=== PATIENT | male | born 1945 | race Caucasian/White ===

== ENCOUNTER → 2017-11-28 | Outpatient (CLI) | payer OTHER | LOC: M SMT 08:17 | DX: J90 Pleural effusion, not elsewhere classified (principal) | CPT/HCPCS: 71046 ==

== ENCOUNTER 2018-08-10 12:04 | Inpatient (IN) | payer MEDICARE, OTHER ==
[~2018-08-10] VITALS: Ht 177.8 cm; Wt 86.7 kg
[2018-08-10] MEDS ORDERED: FURO40TA2 (12:16)
[2018-08-10] MEDS ORDERED: SERT25TA88 PO (12:16)
[2018-08-10] MEDS ORDERED: FURO80TA2 PO (12:16)
[2018-08-10] MEDS ORDERED: ISOS60TA2 PO (12:16)
[2018-08-10] MEDS ORDERED: POTA1TAB23 (12:16)
[2018-08-10] MEDS ORDERED: PRAV20TA2 PO (12:16)
[2018-08-10] MEDS ORDERED: FERR324T2 PO (12:16)
[2018-08-10 12:31] VITALS: BP 105/55
[2018-08-10 13:27] LABS: HEMATOCRIT 34.6 % (42.0-52.0); HEMOGLOBIN 11.5 g/dl (13.5-17.5); MEAN CORPUSCULAR HGB CONC 33.2 g/dl (32.0-36.5); MEAN CORPUSCULAR VOLUME 93.3 fl (80.0-96.0); PLATELET COUNT, AUTOMATED 141 10^3/uL (150-450); RED BLOOD COUNT 3.71 10^6/uL (4.30-6.10); WHITE BLOOD COUNT 9.7 10^3/uL (4.0-10.0)
[2018-08-10 13:52] LABS: CREATININE FOR GFR 2.45 MG/DL (0.70-1.30); GLOMERULAR FILTRATION RATE 27.6 (>42); MB/CK RELATIVE INDEX 3.02 (< OR =4); POTASSIUM SERUM 4.3 MEQ/L (3.5-5.1); TROPONIN I 0.11 NG/ML (< 0.10)
--- NOTE | 2018-08-10 14:01 | REP ---
PORTABLE CHEST X-RAY: Single view. HISTORY: Dyspnea. COMPARISON CHEST X-RAY: November 28, 2017. FINDINGS: EKG monitoring electrodes overlie the chest. There are median sternotomy wires. The heart is mildly enlarged unchanged. The aorta is tortuous and calcific. There are clips in the soft tissues of the neck on the left. There is slight blunting of the right lateral pleural angle but this is improved from the November 28, 2017 prior study. IMPRESSION: Mild cardiac enlargement prior sternotomy. Slight blunting of the right lateral pleural angle. Otherwise no acute disease. Electronically Signed by Prince Martínez MD 08/10/2018 02:28 P
[2018-08-10] MEDS ORDERED: TRAZO50TA PO (14:12)
[2018-08-10] MEDS ORDERED: ASPI1TAB PO (14:12)
[2018-08-10] MEDS ORDERED: NITR4TASL SL (14:12)
[2018-08-10] MEDS ORDERED: VITMTA PO (14:12)
--- NOTE | 2018-08-10 15:09 | HPEPDOC ---
[facility] Medical History & Physical Date of Admission Aug 10, 2018 Attending Physician: A History and Physical ATTENDING: Dr. Diop PCP: Dr [facility] Dr Menon CC: edema HPI: 73yoM with a past medical history significant for CAD/CABG/Cardiac stents and CHF who was seen at Dr Menon's office today related to decompensated CHF. The pt was referred to ED for further evaluation. The pt has no advanced directives onfile. He states he wishes to be [employer], wants too pursue Hospice. States LE edema and abdominal distention has been unchanged for several days. Denies orthopnea, PND, cough, CP. Feels generally weak. Reports YU but otherwise states breathing is comfortable. Denies any fevers, chills, GAMBINO, palpitations, N/V/D or changes in bowel or bladder habits. Upon presentation to the hospital the patient was found to have decompensated CHF, thus the hospitalist team was consulted. PMHx: CAD/IL CHF. No TTE available. HTN HLD DM depression Fe def anemia CKD 3-4 PSHX: CABG Cardiac stents SOCHX: Resides in: [facility] Marital Status: Tobacco use: denies ETOH: denies Advanced directives: None FAMHX: Siblings: 1 sister Alive, well. 1 brother heart disease Children: none ROS: As noted in HPI, otherwise 11pt ROS of systems reviewed and remarkable for small open skin area coccyx. PE: GEN: 73yoM, appears stated age. Thin, cachectic appearing. No acute distress lying on the stretcher flat. Alert and oriented x 3. HEENT: Normocephalic, atraumatic. Pupils are equal, round, and reactive to light. Extraocular movements are intact. No nystagmus appreciated. Sclera are nonicteric. Conjunctiva without injection. No facial asymmetry. Moist mucous membranes. CHEST: Regular rate and rhythm, +S1, +S2 LUNGS: Good a/e bilaterally. No wheezes, rales, or rhonchi. Breathing is comfortable flat on the stretcher. ABD: Round, distended, non-tender, hypoactive Bowel sounds noted. No rebound or guarding. No costovertebral angle tenderness. EXT: The pt is noted to have pitting edema to prox thigh areas b/l, 4-5 mm. SKIN: No rashes. Coccyx area appears erythematous, small area of open skin dime sized, no drainage. NEURO: Alert and oriented x 3. No focal deficits appreciated. CXR: Mild cardiac enlargement prior sternotomy. Slight blunting of the right lateral pleural angle. Otherwise no acute disease. Electronically Signed by Prince Martínez MD 08/10/2018 02:28 P A&P: 73yoM with a past medical history significant for CAD/CABG/Cardiac stents and CHF who was seen at Dr Menon's office today related to decompensated CHF. The pt was referred to ED for further evaluation. The pt has no advanced directives onfile. He states he wishes to be [employer], wants too pursue Hospice. States LE edema and abdominal distention has been unchanged for several days. Denies orthopnea, PND, cough, CP. Feels generally weak. Reports YU, but otherwise states breathing is comfortable. 1. The patient will be admitted to /S for at least [address] Diop's service. Pt is reviewed and examined as per Dr Reynoso. 2. CHF, decompensated. No prior TTE available. Pt is requesting DNR/DNI. Pt requests [employer]. MOLST is completed and placed on the chart. Pt is requesting Hospice consult and wants to consider [facility]. PFS Clt. No further labs/testing requested at this time. will hold home meds per patient request 3. CAD/CABG. No further labs requested. 4. HTN. 5. CKD 3-4. Unknown baseline. No prior labs in the system. SCr 2.45. 6. HLD. Statin. Vital Signs Vital Signs Date Time Temp Pulse Resp B/P (MAP) Pulse Ox O2 Delivery O2 Flow Rate FiO2 08/10/18 13:07 08/10/18 12:31 98.6 76 19 99 Room Air Laboratory Data Labs 24H Laboratory Tests 2 08/10/18 12:36: Nucleated Red Blood Cells % (auto) 0.0, Anion Gap 11, Glomerular Filtration Rate 27.6L, Blood Urea Nitrogen 89H, Creatinine 2.45H, Sodium Level 124L, Potassium Level 4.3, Chloride Level 84L, Carbon Dioxide Level 29, Calcium Level 8.0L, Total Creatine Kinase 63, Creatine Kinase MB 2.0, Creatine Kinase MB Relative Index 3.02, Troponin I 0.11H CBC/BMP Laboratory Tests 08/10/18 12:36 Red Blood Count 3.71 L, Mean Corpuscular Volume 93.3, Mean Corpuscular Hemoglobin 31.0, Mean Corpuscular Hemoglobin Concent 33.2, Red Cell Distribution Width 14.5, Calcium Level 8.0 L, Total Creatine Kinase 63 Home Medications Scheduled (Sertraline HCl) 25 Mg Tab, 25 MG PO QHS Aspirin (Aspirin 81) 81 Mg Tab, 81 MG PO DAILY Ferrous Sulfate (Ferrous Sulfate) 324 Mg Tab, 324 MG PO DAILY Furosemide (Furosemide) 80 Mg Tab, 80 MG PO DAILY Isosorbide Mononitrate (Isosorbide Mononitrate ER) 60 Mg Tab, 60 MG PO DAILY Multivitamins *[facility] STOCKED* (Thera M Plus *[facility] STOCKED*) 1 Tab Tab, 1 TAB PO DAILY Pravastatin Sodium (Pravastatin Sodium) 20 Mg Tab, 20 MG PO QHS Trazodone HCl (Trazodone HCl) 50 Mg Tab, 50 MG PO QHS Scheduled PRN Nitroglycerin (Nitrostat) 0.4 Mg Subl, 0.4 MG SL NITRO PRN for CHEST PAIN Allergies Coded Allergies: No Known Allergies (Unverified , 08/10/18) Attending Note I have both independently examined this patient as well as reviewed the H&P. I have discussed in detail with the PA the findings and plan of treatment as documented in the PA's note Jessica Barbosa Aug 10, 2018 15:09 ROB DAVISON MD Aug 10, 2018 16:55
[2018-08-10] MEDS ORDERED: PRAVASTATIN 20 MG TAB PO SCH (21:00)
[2018-08-10] MEDS: RAMELTEON 8 MG TAB (ROZEREM) PO SCH (21:06)
[2018-08-10] MEDS ORDERED: LORazepam 1 MG TAB PO PRN (21:45)
[2018-08-10] MEDS ORDERED: MORPHINE 10MG/0.5ML ORAL CONCENTRATE SOLUTION U/D SL PRN (21:45)
[2018-08-10] MEDS ORDERED: ONDANSETRON 4 MG ORAL DISINTEGRATING TAB (Q0162 PER 1MG) PO PRN (21:45)
--- NOTE | 2018-08-11 06:50 | ECGEPIP ---
Stationary ECG Study [facility] - ED Test Date: 2018-08-10 Pat Name: BILLY UNDERWOOD Department: Room: - Gender: M Cold Roll Inspector: EZEQUIEL : 1945 Requested By: Lazaro Bailey Order Number: [id number] Reading MD: Lazaro Elizondo Measurements Intervals [place] Rate: 53 P: IL: 0 QRS: 261 QRSD: 134 T: 138 QT: 491 QTc: 461 Interpretive Statements ATRIAL FIBRILLATION WITH SLOW VENTRICULAR RESPONSE INTRAVENTRICULAR CONDUCTION DELAY RIGHT VENTRICULAR HYPERTROPHY POSSIBLE ANTERIOR MYOCARDIAL INFARCTION, OF INDETERMINATE AGE NO PRIORS FOR COMPARISON Electronically Signed On 08-11-2018 6:49:52 EDT by Lazaro Elizondo
[2018-08-11] MEDS ORDERED: FUROSEMIDE 80 MG TAB PO SCH (09:00)
[2018-08-11] MEDS ORDERED: ISOSORBIDE MON. (IMDUR) 60 MG XR TAB PO SCH (09:00)
[2018-08-11] MEDS ORDERED: ASPIRIN 81 MG ENTERIC TAB PO SCH (09:00)
[2018-08-11] MEDS: MORPHINE 30 MG SA TAB PO SCH ×2 (14:07→21:46)
--- NOTE | 2018-08-11 18:01 | IPN ---
DATE: 08/11/2018 SUBJECTIVE: Patient seen and examined in the room today. Patient is complaining about significant pain during encounter. Patient also complained about poor sleep due to her persistent pain. OBJECTIVE: GENERAL: Mild to moderate distress secondary to persistent pain, alert and awake. HEENT: Normocephalic, atraumatic. CARDIOVASCULAR: Positive S1, S2, regular rate. LUNGS: Clear to auscultation bilaterally. ABDOMEN: Soft. EXTREMITIES: Positive edema bilaterally. ASSESSMENT AND PLAN: 1. Decompensated systolic congestive heart failure (CHF) exacerbation. 2. History of myocardial infarction, status post coronary artery bypass graft (CABG) and cardiac stents. 3. Hypertension. 4. Diabetes. 5. Depression. 6. Chronic kidney disease stage IV. 7. Hyponatremia Patient is on comfort measures only. Medical order for life-sustaining treatment (MOLST) form reviewed. Patient is interested in hospice facility. Patient is on hospice medication. Currently, patient is complaining about uncontrolled pain. We will try to introduce a long-acting agent and supplement with as-needed short-acting. ANNITAD
[2018-08-11] MEDS: RAMELTEON 8 MG TAB (ROZEREM) PO SCH (21:00)
[2018-08-12] MEDS: MORPHINE 30 MG SA TAB PO SCH ×2 (09:57→21:42)
--- NOTE | 2018-08-12 16:05 | IPNPDOC ---
Text Note Date of Service The patient was seen on 08/12/18. NOTE SUBJECTIVE: Patient is seen and examined in the room today. Patient states his pain is under better control. He had good night sleep yesterday. Patient states he was hospitalized in [facility] for 2 weeks in the beginning of July this year. OBJECTIVE: GENERAL: No distress. Alert and awake. HEENT: Normocephalic, atraumatic. CARDIOVASCULAR: Positive S1, S2, regular rate. LUNGS: Clear to auscultation bilaterally. ABDOMEN: Soft. EXTREMITIES: Positive edema bilaterally. ASSESSMENT AND PLAN: #. Decompensated systolic congestive heart failure (CHF) exacerbation. #. History of myocardial infarction, status post coronary artery bypass graft (CABG) and cardiac stents. #. Hypertension. #. Diabetes. #. Depression. #. Chronic kidney disease stage IV. PLAN: Patient is on comfort measures only. Medical order for life-sustaining treatment (MOLST) form reviewed. Patient is interested in hospice facility. Patient is on hospice medication. Pain is under control. Hospice consulted. VS,Fishbone, I+O VS, Fishbone, I+O Vital Signs Date Time Temp Pulse Resp B/P (MAP) Pulse Ox O2 Delivery O2 Flow Rate FiO2 08/11/18 14:07 17 08/10/18 13:07 08/10/18 12:31 98.6 76 99 Room Air I&O- Last 24 Hours up to 6 AM 08/12/18 06:00 Intake Total 805 ml Output Total 650 ml Balance 155 ml AWAIS ASENCIO DO Aug 12, 2018 16:05
[2018-08-12] MEDS: RAMELTEON 8 MG TAB (ROZEREM) PO SCH (21:42)
[2018-08-13] MEDS: MORPHINE 30 MG SA TAB PO SCH ×2 (09:00→21:00)
[2018-08-13] MEDS ORDERED: MORP20SO3 PO (16:22)
[2018-08-13] MEDS ORDERED: LORA0.5T11 PO (16:22)
[2018-08-13] MEDS ORDERED: HYOS125TA PO (16:22)
--- NOTE | 2018-08-13 16:25 | IPNPDOC ---
Text Note Date of Service The patient was seen on 08/13/18. NOTE SUBJECTIVE: Patient is seen in the room today. Discomfort is under control. No acute complaint. OBJECTIVE: GENERAL: Alert and awake. Comfortable. HEENT: Normocephalic, atraumatic. ABDOMEN: Soft. EXTREMITIES: Positive edema bilaterally. ASSESSMENT AND PLAN: #. Decompensated systolic congestive heart failure (CHF) exacerbation. #. History of myocardial infarction, status post coronary artery bypass graft (CABG) and cardiac stents. #. Hypertension. #. Diabetes. #. Depression. #. Chronic kidney disease stage IV. PLAN: Patient is on comfort measures only. Medical order for life-sustaining treatment (MOLST) form reviewed. Patient is on hospice medications. Pain is under control. Hospice consulted. Anticipate discharge in next 24 hours. VS,Fishbone, I+O VS, Fishbone, I+O Vital Signs Date Time Temp Pulse Resp B/P (MAP) Pulse Ox O2 Delivery O2 Flow Rate FiO2 08/11/18 14:07 17 08/10/18 13:07 08/10/18 12:31 98.6 76 99 Room Air I&O- Last 24 Hours up to 6 AM 08/13/18 06:00 Intake Total 405 ml Output Total 25 ml Balance 380 ml AWAIS ASENCIO DO Aug 13, 2018 16:25
[2018-08-13] MEDS: RAMELTEON 8 MG TAB (ROZEREM) PO SCH (21:48)
[2018-08-14] MEDS: MORPHINE 30 MG SA TAB PO SCH ×2 (07:50→12:28)
--- NOTE | 2018-08-14 21:53 | DSES ---
DATE OF ADMISSION: 08/10/2018 DATE OF DISCHARGE: 08/14/2018 CONSULTANTS: None. DISCHARGE DIAGNOSIS: Decompensated tremor and systolic congestive heart failure exacerbation. History of myocardial infarction, status post coronary artery bypass graft (CABG) and cardiac stent. Hypertension. Diabetes. Depression. Chronic kidney disease, stage IV. HOSPITALIZATION COURSE: Patient is a 73-year-old gentleman who has recent hospitalization in [facility] for two weeks. Patient had very advanced cardiac history. After patient was discharged home, patient was found to have rapid progression of congestive heart failure (CHF) exacerbation. Patient was seen by the weather stripper's office. Patient's overall prognosis discussed. Later patient came to [facility] to pursue hospice. Medical order of life-sustaining treatment (MOLST) form was updated and confirmed with the patient and immigration case manager and social service agency director has been assisting with hospice facility arrangements. A few days since admission, patient continued to demonstrate physical deteriorations. Later patient has acceptance to the hospice facility and patient discharged August 14, 2018. DISCHARGE MEDICATIONS: - hyoscyamine 0.125 mg by mouth every 4 hours as needed for terminal secretions - lorazepam 0.5 mg by mouth every 4 hours as needed for anxiety/agitation - morphine sulfate 0.25 to 1 mL by mouth every 2 hours as needed for pain DISCHARGE INSTRUCTIONS: Discharge patient to hospice facility. Activity as tolerated. Diet as tolerated. Adjust hospice medication for comfort as needed. DISCHARGE CONDITION: Extremely poor. DISCHARGE TIME: Less than 30 minutes.
== END 2018-08-14 13:20 | disposition hospice, inpatient (51) | DRG 291 ==
LOC: M ED 12:04 → M ED INP 16:11 → M MSPAV 17:32
PROVIDERS: ADMIT Internal Medicine; ATTEND Internal Medicine
DX: I13.0 Hypertensive heart and chronic kidney disease with heart failure and stage 1 through stage 4 chronic kidney disease, or unspecified chronic kidney disease (principal); I50.23 Acute on chronic systolic (congestive) heart failure; N18.4 Chronic kidney disease, stage 4 (severe); I25.10 Atherosclerotic heart disease of native coronary artery without angina pectoris; I25.2 Old myocardial infarction; E78.5 Hyperlipidemia, unspecified; E11.9 Type 2 diabetes mellitus without complications; R52 Pain, unspecified; F32.9 Major depressive disorder, single episode, unspecified; D50.9 Iron deficiency anemia, unspecified; Z95.5 Presence of coronary angioplasty implant and graft; Z66 Do not resuscitate; Z51.5 Encounter for palliative care; Z79.82 Long term (current) use of aspirin; Z79.899 Other long term (current) drug therapy